=== PATIENT | female | born 1950 | race Caucasian/White ===

== ENCOUNTER 2019-07-19 03:35 | Inpatient (IN) | payer MEDICARE, OTHER ==
[~2019-07-19] VITALS: Ht 167.6 cm; Wt 78.9 kg
[2019-07-19 05:25] LABS: BASOPHILS ABSOLUTE AUTO 0.07 K/mm3 (0.00-0.23); BASOPHILS PERCENT AUTO 1 % (0-2); EOSINOPHILS ABSOLUTE AUTO 0.44 K/mm3 (0.00-0.68); EOSINOPHILS PERCENT AUTO 3 % (0-6); Hematocrit 43.7 % (33.0-51.0); Hemoglobin 13.5 g/dL (11.5-16.0); IMMATURE GRAN ABSOLUTE AUTO 0.07 K/mm3 (0.00-0.10); IMMATURE GRAN PERCENT AUTO 1 % (0-1); LYMPHOCYTES ABSOLUTE AUTO 1.98 K/mm3 (0.84-5.20); LYMPHOCYTES PERCENT AUTO 15 % (21-46); MONOCYTES ABSOLUTE AUTO 0.99 K/mm3 (0.16-1.47); MONOCYTES PERCENT AUTO 7 % (4-13); Mean Corpuscular HGB 28.2 pg (26.0-34.0); Mean Corpuscular HGB Conc 30.9 g/dL (31.5-36.5); Mean Corpuscular Volume 91 fL (80-100); Mean Platelet Volume 9.8 fL (9.1-12.4); NEUTROPHILS ABSOLUTE AUTO 9.81 K/mm3 (1.96-9.15); NEUTROPHILS PERCENT AUTO 74 % (41-73); Platelet Count 246 K/mm3 (150-400); RDW Coefficient Variation 14.1 % (11.7-14.2); RDW Standard Deviation 47.8 fL (35.1-46.3); Red Blood Cell Count 4.79 M/mm3 (3.80-5.20); White Blood Cell Count 13.36 K/mm3 (4.00-11.30)
[2019-07-19] MEDS ORDERED: Crestor20 MG PO (05:35)
[2019-07-19] MEDS ORDERED: LEVSOD125 PO (05:36)
[2019-07-19] MEDS ORDERED: ASPI325 PO (05:37)
[2019-07-19 05:53] LABS: Alanine Aminotransfer (ALT/SGP 22 U/L (12-78); Alk Phos 87 U/L (50-136); Anion Gap 6 mmol/L (6-16); Aspartate Aminotrans (AST/SGOT 18 U/L (12-37); Bilirubin, Total 0.2 mg/dL (0.1-1.0); Blood Urea Nitrogen 21 mg/dL (8-24); Bun/Creatinine Ratio 32.6 (12.0-20.0); CHOL/HDL RATIO 3.1; CO2, Blood 22 mmol/L (21-32); Chloride, Blood 116 mmol/L (98-108); Cholesterol 147 mg/dL (50-200); Creatinine, Blood 0.65 mg/dL (0.40-1.00); Glomerular Filtration Rate >60 (60-); Glucose, Blood 107 mg/dL (70-99); HDL Cholesterol 47 mg/dL (>39); Low Density Lipoprotein Chol 92 mg/dL (0-110); Potassium, Blood 3.9 mmol/L (3.5-5.5); Sodium, Blood 144 mmol/L (136-145); Triglycerides 41 mg/dL (30-160); Very Low Density Lipoprot Chol 8 mg/dL (6-32)
--- NOTE | 2019-07-19 07:31 | NUR ---
Admission/Shift Summary: Patient arrived to unit at 0515hr, [facility] by [facility] staff. Patient A/O x4, VSS. C/o very mild pain/discomfort to mid-sternum, unable to rate pain, "too low to rate". Patient's chest pain/discomfort persisted throughout remainder of shift, but did not increase in severity. Patient instructed to notify staff of change or increase in pain. Denies dyspnea/SOB, O2-98% on RA. HR shows NSR in the 60's, BP stable. Peripheral IV x1 to lt AC patent and intact, NS started at 200ml/hr, for 1L. TR band to rt radial, site appears WNL. No s/s of active bleeding/hematoma, good waveform on SpO2, distal limb shows good capillary refill, sensation, but slightly cool to touch. Tempature to distal limb improved througout remainder of shift. x2ml of air removed from TR band at 0650hr, site/distal limb remain WNL, armboard remains in place. Patient appears calm and comfortable. Report given to day shift RN.
--- NOTE | 2019-07-19 11:24 | NUR ---
AIR COMPLETELY REMOVED FROM TR BAND. INSTRUCTED PATIENT THAT BAND MUST STAY IN PLACE FOR ONE HOUR AND TO REPORT NEW ONSET PAIN OR BLEEDING IMMEDIATELY, AND THAT ARM BOARD MUST REMAIN IN PLACE FOR 48 HOUR POST REMOVAL; VERBALIZED UNDERSTANDING.
--- NOTE | 2019-07-19 11:45 | NUR ---
DR. VASQUEZ AT BEDSIDE FOR ASSESSMENT. THIS AUTHOR GAVE UPDATE ON PT CONDITION, CLARIFIED ACTIVITY ORDERS (HE STATED OK TO SHOWER, UP WITH ASSIST). ALSO CLARIFIED DOSAGES OF HOME ROSUVASTATIN AND SYNTHROID, AND RECEIVED VERBAL ORDERS TO CHANGE THESE MEDICATIONS. ASKED ABOUT STATUS CHANGE TO PCU, BUT DR. VASQUEZ WANTS TO KEEP PT IN ICU O/N. PLAN IS FOR LIKELY D/C TOMORROW.
--- NOTE | 2019-07-19 12:04 | NUR ---
SENT PATIENT'S HOME SYNTHROID TO PHARMACY FOR INPUT INTO [facility]. PLACED ORDERS FOR CORRECTED DOSE OF ROSUVASTATIN AND SYNTHROID.
--- NOTE | 2019-07-19 12:10 | NUR ---
REASSESSMENT: A&O X 4, A LITTLE ANXIOUS. FACIAL DROOP AND SLURRED SPEECH HAVE RESOLVED. NEEDS 1 PERSON ASSIST TO GET OOB AND TO DANGLE D/T TR BAND. AIR REMOVED FROM TR BAND, PULSE PALPABLE, SLIGHT BRUISING AT SITE, NO HEMATOMA. GETTING UP TO BSC WITH ASSISTANCE. POOR APPETITE TODAY. DEFERRED SHOWER UNTIL TOMORROW, PARTICIPATES IN THE REST OF HER CARE. HAS ONGOING 1/10 CHEST DISCOMFORT, BUT SHE THINKS IT'S FROM EMS PERSONNEL "PUSHING" ON HER CHEST DURING TRANSPORT TO KEEP HER AWAKE (STERNAL RUB?), DENIES NEW PAIN. HAS BEEN INSTRUCTED TO REPORT NEW ONSET OR WORSENING CHEST DISCOMFORT AND HAS VERBALIZED UNDERSTANDING. WEARING SCD'S. SPOUSE AT BEDSIDE.
--- NOTE | 2019-07-19 13:35 | NUR ---
TR BAND REMOVED FROM R RADIAL SITE. COVERED WITH 2X2 GAUZE AND TEGADERM DRESSING. PLACED ARM BOARD, REITERATED TO PATIENT TO KEEP ARM BOARD ON X 48 HOURS; VERBALIZED UNDERSTANDING. SITE WNL, NO HEMATOMA, SLIGHT BRUISING, DENIES PAIN.
--- NOTE | 2019-07-19 18:17 | NUR ---
SHIFT SUMMARY: CHEST PAIN REMAINED 1/10 THROUGHOUT THE SHIFT; NO CP WITH ACTIVITY, NO SOB OR DIZZINESS. GETTING UP WITH ASSISTANCE TO BSC. TALKATIVE AND COOPERATIVE. R RADIAL SITE REMAINS WITHOUT HEMATOMA, SLIGHT BRUISING, ARM BOARD IN PLACE. PLAN IS LIKELY D/C TOMORROW. WILL NEED F/U OUTPT APPT WITH CARDIOLOGY JOANIE SO NTG CAN BE REFILLED. PT HAS BEEN EDUCATED TO CALL 911 IF CHEST PAIN RETURNS AFTER D/C HOME; VERBALIZED UNDERSTANDING.
--- NOTE | 2019-07-19 20:00 | NUR ---
PATIENT RESTING QUIETLY. RIGHT WRIST DRESSING CD&I WITH ARM BOARD IN PLACE. PATIENT VERBALIZED UNDERSTANDING THAT SHE WILL CONTINUE TO NOT LIFT OR USE RIGHT WRIST DUE TO ACCESS SITE. PATIENT C/O SLIGHT PAIN TO MID CHEST, FEELING A BRUISING TYPE PAIN WHERE SHE HAD A STERNAL RUB IN ED, OTHERWISE NO CHEST PAIN.
--- NOTE | 2019-07-19 22:33 | NUR ---
PATIENT AWAKE, UP IN ROOM INDEPENDENTLY. C/O RESTLESS LEGS, AND ASKING FOR SOMETHING TO HELP HER SLEEP. NO ORDERS AT THIS TIME AND PATIENT DENIES NEED TO CALL DOCTOR FOR ORDER AT THIS TIME. VERBALIZED SHE IS ANXIOUS TO GO HOME IN THE MORNING.
[2019-07-20 03:56] LABS: BASOPHILS ABSOLUTE AUTO 0.04 K/mm3 (0.00-0.23); BASOPHILS PERCENT AUTO 0 % (0-2); EOSINOPHILS ABSOLUTE AUTO 0.44 K/mm3 (0.00-0.68); EOSINOPHILS PERCENT AUTO 4 % (0-6); Hematocrit 40.9 % (33.0-51.0); IMMATURE GRAN ABSOLUTE AUTO 0.03 K/mm3 (0.00-0.10); IMMATURE GRAN PERCENT AUTO 0 % (0-1); LYMPHOCYTES ABSOLUTE AUTO 2.62 K/mm3 (0.84-5.20); LYMPHOCYTES PERCENT AUTO 25 % (21-46); MONOCYTES ABSOLUTE AUTO 0.89 K/mm3 (0.16-1.47); MONOCYTES PERCENT AUTO 8 % (4-13); Mean Corpuscular HGB 28.3 pg (26.0-34.0); Mean Corpuscular HGB Conc 31.8 g/dL (31.5-36.5); Mean Corpuscular Volume 89 fL (80-100); Mean Platelet Volume 9.8 fL (9.1-12.4); NEUTROPHILS ABSOLUTE AUTO 6.57 K/mm3 (1.96-9.15); NEUTROPHILS PERCENT AUTO 62 % (41-73); Platelet Count 245 K/mm3 (150-400); RDW Coefficient Variation 14.2 % (11.7-14.2); RDW Standard Deviation 46.4 fL (35.1-46.3); Red Blood Cell Count 4.59 M/mm3 (3.80-5.20); White Blood Cell Count 10.59 K/mm3 (4.00-11.30)
[2019-07-20 04:12] LABS: Anion Gap 3 mmol/L (6-16); Blood Urea Nitrogen 10 mg/dL (8-24); Bun/Creatinine Ratio 16.9 (12.0-20.0); CO2, Blood 27 mmol/L (21-32); Calcium, Blood 8.2 mg/dL (8.5-10.1); Chloride, Blood 113 mmol/L (98-108); Creatinine, Blood 0.59 mg/dL (0.40-1.00); Glomerular Filtration Rate >60 (60-); Glucose, Blood 96 mg/dL (70-99); Potassium, Blood 3.9 mmol/L (3.5-5.5); Sodium, Blood 143 mmol/L (136-145)
--- NOTE | 2019-07-20 06:58 | NUR ---
SUMMARY PATIENT AWAKE MOST OF THE NIGHT, PATIENT VERBALIZED THAT SHE HAS HAD CHEST PAIN COME AND GO T/O NIGHT. PATIENT VERBALIZED THAT SHE WAS ABLE TO SLEEP FOR APROX 1 HR DURING THE NIGHT.
--- NOTE | 2019-07-20 07:41 | NUR ---
ASSUMED CARE RECEIVED REPORT FROM MINDI NEWMAN. PT IS LYING IN BED ASLEEP. SHE IS INDEPENDENT IN ROOM, LOW HR IS BASELINE PT STATES, PER NIGHT RN. BED IS LOW AND LOCKED. CALL LIGHT WITHIN REACH.
[2019-07-20] MEDS ORDERED: Aspir 8181 MG PO (10:29)
[2019-07-20] MEDS ORDERED: CLOP75 PO (10:30)
[2019-07-20] MEDS ORDERED: TOPROL XL25 MG PO (10:31)
== END 2019-07-20 11:00 | disposition home or self-care (01) | DRG 250 ==
LOC: ER 03:35 → ICUW 03:52 → ICUE 03:52
PROVIDERS: ADMIT Internal Medicine Cardiovascular Disease
PROC: 02703ZZ Dilation of Coronary Artery, One Artery, Percutaneous Approach (ICD-10-PCS; principal; 2019-07-19)
PROC: 4A023N7 Measurement of Cardiac Sampling and Pressure, Left Heart, Percutaneous Approach (ICD-10-PCS; 2019-07-19)
PROC: B2111ZZ Fluoroscopy of Multiple Coronary Arteries using Low Osmolar Contrast (ICD-10-PCS; 2019-07-19)
DX: I97.190 Other postprocedural cardiac functional disturbances following cardiac surgery (principal); I21.19 ST elevation (STEMI) myocardial infarction involving other coronary artery of inferior wall; T82.855A Stenosis of coronary artery stent, initial encounter; I25.10 Atherosclerotic heart disease of native coronary artery without angina pectoris; E87.5 Hyperkalemia; E03.9 Hypothyroidism, unspecified; R00.1 Bradycardia, unspecified
CPT/HCPCS: 36415; 80048; 80053; 80061; 84484; 85025; 85347; 92941; 93005; 93010; 93306; 93458; 99152; 99153; 99285-25; C1725; C1769; C1887; C1894; J0461; J1644; J2250; J2405; J3010; J7030; Q9967

== ENCOUNTER 2020-03-29 07:22 | Day surgery (SDC) | payer MEDICARE, OTHER ==
[~2020-03-29] VITALS: Ht 162.6 cm; Wt 81.0 kg
[~2020-03-29 07:22] MED LIST: ABAT250V; ASPI325 PO; Aspir 8181 MG PO; CLOP75 PO; Crestor20 MG PO; LEVSOD125 PO; NITR.4SL SL; NITR2.5ER EXT; TOPROL XL25 MG PO
--- NOTE | 2020-03-29 12:00 | NUR ---
ARIVED TO ICU 2: PT ARIVED TO THE UNIT AT THIS TIME WITH A TR BAND WITH 13 CC OF AIR REPORTED IN THE CUFF. REPORT OF PT RECEIVING 2 STENTS TO THE MID RCA. PT DENIES PAIN OR DISCOMFORT IN HER CHEST, BUT STATES PAIN 8/10 IN HER R WRIST AT THE TR BAND.
--- NOTE | 2020-03-29 13:10 | NUR ---
REMOVED 2CC OF AIR FROM TR BAND. PT STATES RELIEF IN PRESSURE OF HER R WRIST. WILL CONTINUE TO MONIOTOR.
--- NOTE | 2020-03-29 14:10 | NUR ---
2CC OF AIR REMOVED FROM TR BAND
--- NOTE | 2020-03-29 14:35 | NUR ---
REMOVED 2CC OF AIR FROM TR BAND
--- NOTE | 2020-03-29 17:20 | NUR ---
3 ML OF AIR REMOVED FROM TR BAND. BAND IS COMPLETELY DEFLATED AT THIS TIME. NO S/S OF BLEEDING NOTED AT THIS TIME. WILL CONTINUE TO LEAVE THE TR BAND FOR AT LEAST ONE HOUR.
--- NOTE | 2020-03-29 18:00 | NUR ---
TR BAND OFF: REMOVED TR BAND AND PLACED A CLEAR DRESSING OVER INSERTION SITE. NO S/S OF BLEEDING NOTED. NO SWELLING, REDNESS OR PAIN AT THE RADIAL SITE.
--- NOTE | 2020-03-29 19:00 | NUR ---
ASSUMED CARE OF PATIENT. RECEIVED REPORT FROM OFFGOING RN. RIGHT RADIAL CATH. SITE WITH OPSITE DRESSING D/I; RIGHT WRIST SOFT WITH NO HEMATOMA NOTED; RIGHT HAND WARM WITH POSITIVE CMS; CAP REFILL <3 SECONDS; RADIAL PULSE STRONG; ARM BOARD IN PLACE; SITE CHECKED BY BOTH RN'S. PATIENT DENIES CHEST PAIN OR SOB. PATIENT STATES SHE IS GOING HOME IN THE MORNING, "NO MATTER WHAT THE DOCTOR SAYS." PATIENT HAS CALL BENNETT IN REACH; INSTRUCTED TO CALL FOR ASSISTANCE WHEN GETTING UP TO TOILET; PATIENT VERBALIZES UNDERSTANDING.
--- NOTE | 2020-03-29 22:15 | NUR ---
ASSUMED CARE OF PT. REPORT RECEIVED FROM MINDI LANIER. PT A&OX4. R RADIAL CATH SITE WITH DRESSING IN PLACE, C/D/I, SOFT c NO HEMATOMA PRESENT. ASSESSED c TWO RN'S. ARMBOARD IN PLACE. PT AWARE AND REMINDED OF THE NEED TO NOT USE THE ARM, PT UNDERSTANDING. PULSE STRONG DISTAL TO SITE, CAP REFILL <3 SECONDS, DENIES ANY PAIN IN THE EXTREMITY. ADAMANT IN REGARDS TO GOING HOME TOMORROW. WATER PROVIDED, CALL LIGHT IN REACH.
--- NOTE | 2020-03-30 01:28 | NUR ---
MD CALL DR SANTIAGO CALLED. PT REQUESTING SOMETHING TO HELP HER SLEEP. A ONE TIME ORDER FOR 5MG AMBIEN PLACED.
--- NOTE | 2020-03-30 01:51 | NUR ---
MED UPDATE PT STATED SHE HAS HAD A REACTION TO AMBIEN IN THE PAST. REFUSED AMBIEN, PT STATED "DO NOT CALL THE DR BACK, I'M OK FOR THE NIGHT".
--- NOTE | 2020-03-30 05:51 | NUR ---
SHIFT SUMMARY WRIST STABLE. CAP REFILL <3 SECONDS. SITE C/D. NO BRUISING OR SWELLING. PT UP IN ROOM NEEDED. VSS. AWAKE MOST OF THE NIGHT. ECHO THIS AM, POSSIBLE DC HOME TODAY. NO C/P. REPORT TO ONCOMING NURSE.
--- NOTE | 2020-03-30 07:05 | NUR ---
ASSUMED CARE: RECEIVED REPORT FROM NOC RN'S NO ACUTE S/S OF DISTRESS PT IS NOTED TO BE SLEEPING UPON ENTERING THE ROOM AND REPORT OF PT NOT WANTING TO BE DISTERBED. WILL CONTINUE TO MONITOR AND ASSESS FURTHER.
--- NOTE | 2020-03-30 08:45 | NUR ---
ECHO IN ROOM AT THIS TIME
--- NOTE | 2020-03-30 09:15 | NUR ---
RADIOGRAPHER ANGIOGRAM CALLED AND STATED DR SANTIAGO GAVE OK TO DISCHARGE.
[2020-03-30] MEDS ORDERED: EFFIENT10 MG PO (09:56)
--- NOTE | 2020-03-30 09:57 | NUR ---
Ltd echocardiogram performed.
--- NOTE | 2020-03-30 11:06 | NUR ---
DISCHARGE: PT DISCHARGED AND WALKED TO THE EXIT BY THIS RN AT THIS TIME. NO ACUTE DISTRESS NOTED. PT DENIES PAIN OR DISCOMFORT. EDUCATED ON DISCHARGE INFORMATION AND GAVE DISCHARGE PACKET.
== END 2020-03-30 11:10 | disposition home or self-care (01) ==
LOC: MHTC 07:22 → ICUE 11:53 → MHTC 03-30 11:10
PROC: 4A023N7 Measurement of Cardiac Sampling and Pressure, Left Heart, Percutaneous Approach (ICD-10-PCS; principal; 2020-03-29)
PROC: B201YZZ Plain Radiography of Multiple Coronary Arteries using Other Contrast (ICD-10-PCS; principal; 2020-03-29)
DX: I25.110 Atherosclerotic heart disease of native coronary artery with unstable angina pectoris (principal); E78.5 Hyperlipidemia, unspecified; E03.9 Hypothyroidism, unspecified; T82.855A Stenosis of coronary artery stent, initial encounter; Y83.1 Surgical operation with implant of artificial internal device as the cause of abnormal reaction of the patient, or of later complication, without mention of misadventure at the time of the procedure; I25.82 Chronic total occlusion of coronary artery; I25.2 Old myocardial infarction; F17.210 Nicotine dependence, cigarettes, uncomplicated; Z88.0 Allergy status to penicillin; Z91.041 Radiographic dye allergy status; Z79.82 Long term (current) use of aspirin; Z79.899 Other long term (current) drug therapy; I77.819 Aortic ectasia, unspecified site
CPT/HCPCS: 76937; 85347; 92920; 92978; 93005; 93010; 93308; 93458; 99152; 99153; A9270; A9270-GY; C1725; C1753; C1769; C1874; C1887; C1894; C9600; C9607; J0461; J1644; J2250; J3010; J7030; J7040; J7050; Q9967

== ENCOUNTER 2025-05-02 06:49 | Inpatient (IN) | payer MEDICARE, OTHER ==
[2025-05-02] VITALS (7 sets, daily range): BP systolic 121–146; BP diastolic 57–90
[~2025-05-02] VITALS: Ht 157.5 cm; Wt 82.2 kg
[~2025-05-02 06:49] MED LIST changes: +EFFIENT10 MG PO
[2025-05-02 07:19] LABS: BASOPHILS ABSOLUTE AUTO 0.06 K/mm3 (0.00-0.23); BASOPHILS PERCENT AUTO 1 % (0-2); EOSINOPHILS ABSOLUTE AUTO 0.38 K/mm3 (0.00-0.68); EOSINOPHILS PERCENT AUTO 4 % (0-6); Hematocrit 32.6 % (33.0-51.0); Hemoglobin 10.4 g/dL (11.5-16.0); IMMATURE GRAN ABSOLUTE AUTO 0.07 K/mm3 (0.00-0.10); IMMATURE GRAN PERCENT AUTO 1 % (0-1); LYMPHOCYTES ABSOLUTE AUTO 2.14 K/mm3 (0.84-5.20); LYMPHOCYTES PERCENT AUTO 24 % (21-46); MONOCYTES ABSOLUTE AUTO 0.96 K/mm3 (0.16-1.47); MONOCYTES PERCENT AUTO 11 % (4-13); Mean Corpuscular HGB Conc 31.9 g/dL (31.5-36.5); Mean Corpuscular Volume 90 fL (80-100); NEUTROPHILS ABSOLUTE AUTO 5.37 K/mm3 (1.96-9.15); NEUTROPHILS PERCENT AUTO 60 % (41-73); NRBC ABSOLUTE 0.00 K/mm3 (0.00-0.02); NRBC Auto 0.0 /100 WBC (0.0-0.2); Platelet Count 236 K/mm3 (150-400); RDW Coefficient Variation 14.0 % (11.7-14.2); RDW Standard Deviation 46.0 fL (35.1-46.3)
[2025-05-02 07:36] LABS: Alanine Aminotransfer (ALT/SGP 16.0 U/L (12-78); Albumin, Blood 2.5 g/dL (3.4-5.0); Albumin/Globulin Ratio 1.1 (0.8-1.8); Anion Gap 6.0 mmol/L (3-11); Aspartate Aminotrans (AST/SGOT 7.0 U/L (12-37); Bilirubin, Total 0.2 mg/dL (0.1-1.0); Blood Urea Nitrogen 40.0 mg/dL (8-24); CO2, Blood 27.0 mmol/L (21-32); Calcium, Blood 7.8 mg/dL (8.5-10.1); Chloride, Blood 114.0 mmol/L (98-108); Creatinine, Blood 0.77 mg/dL (0.40-1.00); Globulin, Blood 2.3 g/dL (2.2-4.0); Glucose, Blood 111.0 mg/dL (70-99); Potassium, Blood 4.5 mmol/L (3.5-5.5); Sodium, Blood 142.0 mmol/L (136-145); Total Protein, Blood 4.8 g/dL (6.4-8.2)
[2025-05-02] MEDS ORDERED: NS 1,000 ML IV SCH ×2 (08:00→10:50)
[2025-05-02] MEDS ORDERED: Pantoprazole Sodium 40 MG Injection IV ONE (08:05)
[2025-05-02] MEDS ORDERED: Ondansetron HCl 2 MG / ML 2ML Vial IV PRN (09:20)
[2025-05-02 11:30] LABS: Hematocrit 34.8 % (33.0-51.0); Hemoglobin 11.2 g/dL (11.5-16.0)
[2025-05-02 11:57] LABS: Ferritin, Serum 22.0 ng/mL (8-252); Total Iron Binding Capacity 240.0 ug/dL (250-450)
[2025-05-02] MEDS ORDERED: MAG GLYCINATE100 MG PO (12:43)
[2025-05-02] MEDS ORDERED: FERSU300 PO (12:43)
[2025-05-02 15:07] LABS: Hematocrit 36.9 % (33.0-51.0); Hemoglobin 11.7 g/dL (11.5-16.0)
[2025-05-02] MEDS ORDERED: FLU VACC TS2025-26(6MOS UP)/PF 45 MCG/0.5 ML SYRINGE IM SCH (16:00)
--- NOTE | 2025-05-02 18:38 | NUR ---
05/02/25 1838 Bala Oliva History, Chart, Medications and Allergies reviewed before start of procedure. MONITOR INTACT WITH CONTINUOUS PULSE OXIMETRY, CONTINUOUS END TITAL CO2, 3-LEAD EKG AND INTERMITTENT BLOOD PRESSURE. O2 VIA POM INTACT THROUGHOUT SEDATION/PROCEDURE. Bite Block Placed AT START OF PROCEDURE. TELE MONITOR IN PLACE.
--- NOTE | 2025-05-02 19:14 | NUR ---
EOS: PATIENT JUST ARRIVED BACK FROM DAY SURGERY, PLAN FOR EGD TOMORROW WITH FIXING THE SMALL MALFORMED VEIN, PATIENT ON ANTIPLATLET, PATIENT ABLE TO MAKE NEEDS KNWON IS ALERT AND ORIENTED X 4, PATIENT UPDATED. NO ACUTE CONCERNS FROM PATIENT OR THIS RN. PATIENT ON RA VSS FOR PATIENT ON RA, AFEBRILE, DENIES CHEST PAIN PRESSURE OR SOB. PENDING ORDERS FROM DR. MARIE.
[2025-05-02 20:31] LABS: Hematocrit 32.6 % (33.0-51.0); Hemoglobin 10.8 g/dL (11.5-16.0)
[2025-05-02] MEDS ORDERED: ATOR40TA PO (20:45)
[2025-05-03] VITALS (9 sets, daily range): BP systolic 104–158; BP diastolic 53–94
[2025-05-03 04:19] LABS: BASOPHILS ABSOLUTE AUTO 0.04 K/mm3 (0.00-0.23); BASOPHILS PERCENT AUTO 1 % (0-2); EOSINOPHILS ABSOLUTE AUTO 0.30 K/mm3 (0.00-0.68); EOSINOPHILS PERCENT AUTO 4 % (0-6); Hematocrit 29.5 % (33.0-51.0); Hemoglobin 9.8 g/dL (11.5-16.0); IMMATURE GRAN ABSOLUTE AUTO 0.02 K/mm3 (0.00-0.10); IMMATURE GRAN PERCENT AUTO 0 % (0-1); LYMPHOCYTES ABSOLUTE AUTO 1.97 K/mm3 (0.84-5.20); LYMPHOCYTES PERCENT AUTO 23 % (21-46); MONOCYTES ABSOLUTE AUTO 0.76 K/mm3 (0.16-1.47); MONOCYTES PERCENT AUTO 9 % (4-13); Mean Corpuscular HGB Conc 33.2 g/dL (31.5-36.5); Mean Corpuscular Volume 87 fL (80-100); NEUTROPHILS ABSOLUTE AUTO 5.32 K/mm3 (1.96-9.15); NEUTROPHILS PERCENT AUTO 63 % (41-73); NRBC ABSOLUTE 0.00 K/mm3 (0.00-0.02); NRBC Auto 0.0 /100 WBC (0.0-0.2); Platelet Count 217 K/mm3 (150-400); RDW Coefficient Variation 14.2 % (11.7-14.2); RDW Standard Deviation 45.6 fL (35.1-46.3)
[2025-05-03 04:39] LABS: Alanine Aminotransfer (ALT/SGP 16.0 U/L (12-78); Albumin, Blood 2.7 g/dL (3.4-5.0); Albumin/Globulin Ratio 1.2 (0.8-1.8); Anion Gap 8.0 mmol/L (3-11); Aspartate Aminotrans (AST/SGOT 12.0 U/L (12-37); Bilirubin, Total 0.6 mg/dL (0.1-1.0); Blood Urea Nitrogen 20.0 mg/dL (8-24); CO2, Blood 23.0 mmol/L (21-32); Calcium, Blood 7.6 mg/dL (8.5-10.1); Chloride, Blood 114.0 mmol/L (98-108); Creatinine, Blood 0.61 mg/dL (0.40-1.00); Globulin, Blood 2.3 g/dL (2.2-4.0); Glucose, Blood 103.0 mg/dL (70-99); Potassium, Blood 3.6 mmol/L (3.5-5.5); Sodium, Blood 141.0 mmol/L (136-145); Total Protein, Blood 5.0 g/dL (6.4-8.2)
--- NOTE | 2025-05-03 06:44 | NUR ---
SHIFT SUMMARY PATIENT ALERT AND ORIENTED X4. HAD NO COMPLAINTS OF PAIN OR SHORTNESS OF BREATH. ON ROOM AIR WITH SPO2 >90%. VITAL SIGNS STABLE. PATIENT HAD DARK, TARRY STOOLS NOTED OVERNIGHT. WILL CONTINUE TO MONITOR. CALL LIGHT WITHIN REACH.
--- NOTE | 2025-05-03 16:58 | NUR ---
05/03/25 16[address] Cristina Knight MAC WITH DR. AGUAYO, SEE ANESTHESIA RECORDS
[2025-05-04 00:36] VITALS: BP 119/70
[2025-05-04 04:16] VITALS: BP 136/68
--- NOTE | 2025-05-04 06:27 | NUR ---
SHIFT SUMMARY: Pt is admitted for gi bleed and is a full code. Is alert and able to make needs known. ADLs have been SBA when requested. Denies pain or discomfort when asked. IV to left AC is patent with dressing that is CDI. running protonics at 10ml/h. Cecil noted sinus in the 50-60s with a bundle branch. Had a BM and was noted to have some darker blood in small amounts.
[2025-05-04 06:47] LABS: BASOPHILS ABSOLUTE AUTO 0.03 K/mm3 (0.00-0.23); BASOPHILS PERCENT AUTO 0 % (0-2); EOSINOPHILS ABSOLUTE AUTO 0.28 K/mm3 (0.00-0.68); EOSINOPHILS PERCENT AUTO 4 % (0-6); Hematocrit 29.9 % (33.0-51.0); Hemoglobin 9.7 g/dL (11.5-16.0); IMMATURE GRAN ABSOLUTE AUTO 0.03 K/mm3 (0.00-0.10); IMMATURE GRAN PERCENT AUTO 0 % (0-1); LYMPHOCYTES ABSOLUTE AUTO 1.73 K/mm3 (0.84-5.20); LYMPHOCYTES PERCENT AUTO 22 % (21-46); MONOCYTES ABSOLUTE AUTO 0.69 K/mm3 (0.16-1.47); MONOCYTES PERCENT AUTO 9 % (4-13); Mean Corpuscular HGB Conc 32.4 g/dL (31.5-36.5); Mean Corpuscular Volume 89 fL (80-100); NEUTROPHILS ABSOLUTE AUTO 5.20 K/mm3 (1.96-9.15); NEUTROPHILS PERCENT AUTO 65 % (41-73); NRBC ABSOLUTE 0.00 K/mm3 (0.00-0.02); NRBC Auto 0.0 /100 WBC (0.0-0.2); Platelet Count 215 K/mm3 (150-400); RDW Coefficient Variation 14.2 % (11.7-14.2); RDW Standard Deviation 45.9 fL (35.1-46.3)
[2025-05-04 07:12] LABS: Anion Gap 7.0 mmol/L (3-11); Blood Urea Nitrogen 12.0 mg/dL (8-24); CO2, Blood 26.0 mmol/L (21-32); Calcium, Blood 7.8 mg/dL (8.5-10.1); Chloride, Blood 112.0 mmol/L (98-108); Creatinine, Blood 0.77 mg/dL (0.40-1.00); Glucose, Blood 102.0 mg/dL (70-99); Potassium, Blood 3.6 mmol/L (3.5-5.5); Sodium, Blood 141.0 mmol/L (136-145)
[2025-05-04 07:19] VITALS: BP 133/74
[2025-05-04] MEDS ORDERED: PANT40 PO (12:21)
--- NOTE | 2025-05-04 13:47 | NUR ---
DISCHARGE NOTE PT DISCHARGED TO HOME, PICKED UP BY HER . IV REMOVED. TELE RETURNED. DISCHARGE MEDICATIONS FAXED TO THE PHARMACY OF HER CHOICE. DISCHARGE INFORMATION AND EDUCATION REVIEWED WITH THE PT. PERSONAL BELONGINGS RETURNED.
== END 2025-05-04 13:38 | disposition home or self-care (01) | DRG 379 ==
LOC: ER 06:49 → PCU 06:50 → MEDS 05-03 21:53
PROVIDERS: Emergency Medicine; Internal Medicine Gastroenterology; ADMIT Internal Medicine
PROC: 0DJ08ZZ Inspection of Upper Intestinal Tract, Via Natural or Artificial Opening Endoscopic (ICD-10-PCS; 2025-05-02)
PROC: 0W3P8ZZ Control Bleeding in Gastrointestinal Tract, Via Natural or Artificial Opening Endoscopic (ICD-10-PCS; principal; 2025-05-03 09:00)
DX: K31.811 Angiodysplasia of stomach and duodenum with bleeding (principal); I25.10 Atherosclerotic heart disease of native coronary artery without angina pectoris; Z95.5 Presence of coronary angioplasty implant and graft; E03.9 Hypothyroidism, unspecified; I10 Essential (primary) hypertension; E78.5 Hyperlipidemia, unspecified; D50.9 Iron deficiency anemia, unspecified; F17.210 Nicotine dependence, cigarettes, uncomplicated; Z88.0 Allergy status to penicillin; Z88.8 Allergy status to other drugs, medicaments and biological substances; Z91.048 Other nonmedicinal substance allergy status; Z79.890 Hormone replacement therapy; Z79.82 Long term (current) use of aspirin; Z79.899 Other long term (current) drug therapy; Z85.43 Personal history of malignant neoplasm of ovary; Z90.710 Acquired absence of both cervix and uterus; Z90.722 Acquired absence of ovaries, bilateral; Z90.79 Acquired absence of other genital organ(s); Z98.890 Other specified postprocedural states
CPT/HCPCS: 36415; 71046; 80048; 80053; 82607; 82728; 82746; 83540; 83550; 83690; 84484; 85014; 85018; 85025; 86850; 86900; 86901; 93005; 93010; 96374; 99285-25; A9270; J2405; J2470; J2704; J7030; J7120

== ENCOUNTER → 2025-05-17 | Outpatient (CLI) | payer MEDICARE, OTHER ==
[~2025-05-17] MED LIST changes: +ATOR40TA PO; +FERSU300 PO; +MAG GLYCINATE100 MG PO; +PANT40 PO
[2025-05-17 13:00] LABS: BASOPHILS ABSOLUTE AUTO 0.05 K/mm3 (0.00-0.23); BASOPHILS PERCENT AUTO 1 % (0-2); EOSINOPHILS ABSOLUTE AUTO 0.56 K/mm3 (0.00-0.68); EOSINOPHILS PERCENT AUTO 6 % (0-6); Hematocrit 38.7 % (33.0-51.0); Hemoglobin 12.1 g/dL (11.5-16.0); IMMATURE GRAN ABSOLUTE AUTO 0.05 K/mm3 (0.00-0.10); IMMATURE GRAN PERCENT AUTO 1 % (0-1); LYMPHOCYTES ABSOLUTE AUTO 1.65 K/mm3 (0.84-5.20); LYMPHOCYTES PERCENT AUTO 17 % (21-46); MONOCYTES ABSOLUTE AUTO 0.93 K/mm3 (0.16-1.47); MONOCYTES PERCENT AUTO 9 % (4-13); Mean Corpuscular HGB Conc 31.3 g/dL (31.5-36.5); Mean Corpuscular Volume 93 fL (80-100); NEUTROPHILS ABSOLUTE AUTO 6.79 K/mm3 (1.96-9.15); NEUTROPHILS PERCENT AUTO 68 % (41-73); NRBC ABSOLUTE 0.00 K/mm3 (0.00-0.02); NRBC Auto 0.0 /100 WBC (0.0-0.2); Platelet Count 355 K/mm3 (150-400); RDW Coefficient Variation 15.5 % (11.7-14.2); RDW Standard Deviation 52.4 fL (35.1-46.3)
[2025-05-17 14:21] LABS: Alanine Aminotransfer (ALT/SGP 28 U/L (12-78); Albumin, Blood 3.5 g/dL (3.4-5.0); Albumin/Globulin Ratio 1.0 (0.8-1.8); Anion Gap 10 mmol/L (3-11); Aspartate Aminotrans (AST/SGOT 12 U/L (12-37); Bilirubin, Total 0.3 mg/dL (0.1-1.0); Blood Urea Nitrogen 16 mg/dL (8-24); CHOL/HDL RATIO 2.9; CO2, Blood 26 mmol/L (21-32); Calcium, Blood 8.5 mg/dL (8.5-10.1); Chloride, Blood 108 mmol/L (98-108); Cholesterol 158 mg/dL (50-200); Creatinine, Blood 0.78 mg/dL (0.40-1.00); Globulin, Blood 3.4 g/dL (2.2-4.0); Glucose, Blood 105 mg/dL (70-99); HDL Cholesterol 54 mg/dL (>39); LDL/HDL RATIO 1.5; Low Density Lipoprotein Chol 81 mg/dL (0-110); Potassium, Blood 4.5 mmol/L (3.5-5.5); Sodium, Blood 139 mmol/L (136-145); Thyroid Stimulating Hormone 1.630 uIU/mL (0.360-4.800); Total Protein, Blood 6.9 g/dL (6.4-8.2); Triglycerides 117 mg/dL (30-160); Very Low Density Lipoprot Chol 23 mg/dL (6-32)
== END ==
LOC: LAB SHORT 09:15 → LAB 09:15
PROVIDERS: Nurse Practitioner Family
DX: K25.4 Chronic or unspecified gastric ulcer with hemorrhage (principal); E03.9 Hypothyroidism, unspecified; E78.2 Mixed hyperlipidemia; I10 Essential (primary) hypertension; R73.03 Prediabetes
CPT/HCPCS: 80053; 80061; 83036; 84443; 85025